=== PATIENT | male | born 1985 | race African-American/Black ===

== ENCOUNTER → 2016-09-10 | Outpatient (CLI) | payer OTHER ==
[~2016-09-10] MED LIST: GADOBUTROL 10 MMOL/10 ML VIAL IV ONE; NAPR550T3 PO; SILD50TA PO
--- NOTE | 2016-09-10 16:31 | KCIC ---
PROCEDURE MRI of the lumbar spine without and with contrast 09/10/2016 HISTORY Chronic low back pain. History of previous lumbar spine surgery. TECHNIQUE Unenhanced T1 weighted and T2 weighted sagittal and axial and inversion recovery sagittal images of the lumbar spine were obtained. After the intravenous administration of 10 cc of Gadavist, enhanced T1 weighted sagittal and axial images of the lumbar spine were obtained. FINDINGS No previous imaging studies are available for comparison. Minimal lateral curvature of the lumbar spine is seen convex to the left. Degenerative signal changes and loss of height are seen involving the L3-4 and L5-S1 discs. Degenerative signal changes are seen within the marrow surrounding the L5-S1 disc. The conus medullaris is normal in morphology, position, and signal characteristics. The L1-2 disc space is within normal limits. At the L2-3, L3-4 and L4-5 disc spaces there are mild generalized disc bulges. Degenerative changes are seen involving the facet joints bilaterally. There is mild ligamentum flavum hypertrophy bilaterally. There is prominence of the posterior epidural fat. These findings when combined result in mild central spinal canal stenosis. No neural foraminal stenosis is seen. At the L5-S1 disc space the patient is status post left hemilaminotomy. Epidural scarring surrounds the left aspect of the thecal sac. There is mild generalized disc bulge. No focal recurrent disc herniation is seen. Degenerative changes are seen along the facet joints bilaterally. These findings do not result in significant central spinal canal or neural foraminal stenosis. IMPRESSION 1. Status post left hemilaminotomy at L5-S1. 2. The changes of degenerative disc disease are seen involving the lumbar spine. These findings result in mild central spinal canal stenosis at L2-3, L3-4 and L4-5. No neural foraminal stenosis is seen. Electronically signed by: Vinay Nettles MD (Sep 10, 2016 16:30:04)
== END | disposition home or self-care (01) ==
LOC: KCIC MRI 11:25
PROVIDERS: ATTEND Physician Assistant
DX: M54.16 Radiculopathy, lumbar region (principal)
CPT/HCPCS: 72158; A9585